=== PATIENT | female | born 1950 | race Caucasian/White ===

== ENCOUNTER 2023-03-22 09:15 | Day surgery (SDC) | payer MEDICARE, OTHER ==
[~2023-03-22 09:15] MED LIST: Lactated Ringers 1,000 ML IV SCH
[2023-03-22] MEDS ORDERED: fentaNYL 100 MCG/2 ML SDV ONE (10:27)
[2023-03-22] MEDS ORDERED: Propofol 200 MG/20 ML SDV ONE ×2 (10:27→10:56)
== END 2023-03-22 12:35 | disposition home or self-care (01) ==
LOC: VM.SDS 09:15
PROVIDERS: ATTEND Student in an Organized Health Care Education/Training Program
DX: Z12.11 Encounter for screening for malignant neoplasm of colon (principal); D12.0 Benign neoplasm of cecum; K63.5 Polyp of colon; Q43.8 Other specified congenital malformations of intestine; I10 Essential (primary) hypertension; I25.10 Atherosclerotic heart disease of native coronary artery without angina pectoris; K21.9 Gastro-esophageal reflux disease without esophagitis; M19.90 Unspecified osteoarthritis, unspecified site; J44.9 Chronic obstructive pulmonary disease, unspecified; G62.9 Polyneuropathy, unspecified; R73.03 Prediabetes; Z79.82 Long term (current) use of aspirin; Z79.899 Other long term (current) drug therapy; Z79.1 Long term (current) use of non-steroidal anti-inflammatories (NSAID); Z88.5 Allergy status to narcotic agent; Z88.1 Allergy status to other antibiotic agents; Z88.8 Allergy status to other drugs, medicaments and biological substances; Z90.710 Acquired absence of both cervix and uterus
CPT/HCPCS: 00811; 88305; J2704; J3010; J7120